=== PATIENT | female | born 1995 ===

== ENCOUNTER 2022-04-08 08:23 | Outpatient (CLI) | payer OTHER | END 2022-04-08 09:42 | disposition home or self-care (01) | LOC: PRENATAL 08:23 | PROVIDERS: ATTEND Obstetrics & Gynecology Maternal & Fetal Medicine | DX: O36.80X0 Pregnancy with inconclusive fetal viability, not applicable or unspecified (principal); Z36.0 Encounter for antenatal screening for chromosomal anomalies; Z14.8 Genetic carrier of other disease; Z88.0 Allergy status to penicillin; Z3A.14 14 weeks gestation of pregnancy ==

== ENCOUNTER 2022-05-25 10:07 | Outpatient (CLI) | payer OTHER | END 2022-05-25 12:02 | disposition home or self-care (01) | LOC: PRENATAL 10:07 | PROVIDERS: ATTEND Obstetrics & Gynecology Maternal & Fetal Medicine | DX: O35.9XX0 Maternal care for (suspected) fetal abnormality and damage, unspecified, not applicable or unspecified (principal); O35.3XX0 Maternal care for (suspected) damage to fetus from viral disease in mother, not applicable or unspecified; Z3A.21 21 weeks gestation of pregnancy ==

== ENCOUNTER 2022-08-12 09:43 | Outpatient (CLI) | payer OTHER | END 2022-08-12 10:21 | disposition home or self-care (01) | LOC: PRENATAL 09:43 | PROVIDERS: ATTEND Obstetrics & Gynecology Maternal & Fetal Medicine | DX: O26.849 Uterine size-date discrepancy, unspecified trimester (principal); O36.8199 Decreased fetal movements, unspecified trimester, other fetus; Z3A.32 32 weeks gestation of pregnancy ==